=== PATIENT | male | born 1955 | race Hispanic/Latino ===

== ENCOUNTER → 2018-09-13 | Outpatient (CLI) | payer MEDICARE ==
[~2018-09-13] MED LIST: DOXY100C2 PO; LISI-613 PO
== END | disposition home or self-care (01) ==
LOC: RAH 14:49
PROVIDERS: ATTEND Family Medicine
DX: M51.37 Other intervertebral disc degeneration, lumbosacral region (principal); M48.061 Spinal stenosis, lumbar region without neurogenic claudication; M51.27 Other intervertebral disc displacement, lumbosacral region; M54.16 Radiculopathy, lumbar region
CPT/HCPCS: 72148

== ENCOUNTER 2019-09-24 15:27 | Emergency (ER) | payer MEDICARE, OTHER ==
[2019-09-24] MEDS ORDERED: ASPIRIN 325 MG TABLET ONE (16:08)
[2019-09-24 16:13] LABS: BASOPHILS % (AUTO) 0.5 % (0.0-5.0); EOSINOPHILS % (AUTO) 3.1 % (0.0-8.0); HEMATOCRIT 41.4 % (42-54); LYMPHOCYTES % (AUTO) 25.4 % (21.0-51.0); MEAN CORPUSCULAR HEMOGLOBIN 31.1 pg (27.0-33.0); MEAN CORPUSCULAR HGB CONC 33.3 g/dL (32.0-36.0); MEAN CORPUSCULAR VOLUME 93.2 fL (79-99); MONOCYTES % (AUTO) 6.5 % (3.0-13.0); NEUTROPHILS % (AUTO) 64.2 % (40.0-77.0); PLATELET COUNT (AUTO) 240 K/uL (130-400); RED BLOOD CELL COUNT(AUTO) 4.44 MIL/uL (4.50-6.20); RED CELL DISTRIBUTION WIDTH 12.5 % (11.0-15.5)
[2019-09-24 16:24] LABS: POTASSIUM 4.6 mmol/L (3.5-5.1)
[2019-09-24 16:25] LABS: INR 0.97 (0.85-1.15); PARTIAL THROMBOPLASTIN TIME 28.8 SEC (26.3-35.5); PROTHROMBIN TIME 10.5 SEC (9.6-11.6)
[2019-09-24 16:28] LABS: ALBUMIN 3.6 g/dL (3.5-5.0); BILIRUBIN,TOTAL 0.5 mg/dL (0.2-1.0); TOTAL PROTEIN, SERUM 7.9 g/dL (6.0-8.3)
[2019-09-24] MEDS ORDERED: ONDANSETRON HCL 4 MG/2 ML VIAL ONE (16:45)
[2019-09-24] MEDS ORDERED: MORPHINE SULFATE 4 MG/1ML SYG ONE ×2 (16:45→20:40)
[2019-09-24] MEDS ORDERED: IOHEXOL-350 75 ML VIAL IV ONE (16:49)
[2019-09-24] MEDS ORDERED: KETOROLAC TROMETHAMINE 15MG/ML ONE (17:55)
== END 2019-09-24 20:51 | disposition home or self-care (01) ==
LOC: EDH 15:27
DX: M94.0 Chondrocostal junction syndrome [Tietze] (principal); R07.89 Other chest pain; I10 Essential (primary) hypertension; J44.9 Chronic obstructive pulmonary disease, unspecified; Z98.890 Other specified postprocedural states; Z87.891 Personal history of nicotine dependence
CPT/HCPCS: 36415; 71045; 71275; 76705; 80053; 82550; 83690; 84484 ×2; 85025; 85610; 85730; 93005 ×2; 93970; 96374; 96375; 96376; 99284; J1885; J2270 ×2; J2405; Q9967

== ENCOUNTER 2023-03-21 13:48 | Emergency (ER) | payer OTHER ==
[~2023-03-21] VITALS: Ht 170.2 cm; Wt 136.1 kg
[~2023-03-21 13:48] MED LIST changes: -DOXY100C2 PO; +DOXY100C5 PO; -LISI-613 PO; +LISI20TA24 PO
[2023-03-21 13:50] VITALS: BP 162/93; PULSE 72; RESP 18
== END 2023-03-21 16:13 | disposition home or self-care (01) ==
LOC: EDH 13:48
DX: G89.29 Other chronic pain (principal); M79.604 Pain in right leg; M79.605 Pain in left leg; I10 Essential (primary) hypertension